=== PATIENT | female | born 1960 | race Caucasian/White ===

== ENCOUNTER → 2018-01-06 | Outpatient (CLI) | payer OTHER | LOC: NUC 07:54 | DX: R31.9 Hematuria, unspecified (principal); E28.8 Other ovarian dysfunction; R29.890 Loss of height; Z78.0 Asymptomatic menopausal state ==

== ENCOUNTER → 2020-12-18 | Outpatient (CLI) | payer OTHER | LOC: CAT 08:15 | PROVIDERS: ATTEND Family Medicine | DX: K57.30 Diverticulosis of large intestine without perforation or abscess without bleeding (principal); N85.8 Other specified noninflammatory disorders of uterus; R19.5 Other fecal abnormalities ==